=== PATIENT | female | born 1955 | race Caucasian/White ===

== ENCOUNTER → 2016-10-20 | Outpatient (CLI) | payer BC | END | disposition home or self-care (01) | LOC: RAD.S 15:30 | DX: C50.912 Malignant neoplasm of unspecified site of left female breast (principal); F41.9 Anxiety disorder, unspecified; I10 Essential (primary) hypertension; Z92.21 Personal history of antineoplastic chemotherapy ==

== ENCOUNTER → 2016-11-06 | Outpatient (CLI) | payer BC | END | disposition home or self-care (01) | LOC: RAD.S 11-04 09:00 | DX: C50.912 Malignant neoplasm of unspecified site of left female breast (principal); I10 Essential (primary) hypertension; F41.9 Anxiety disorder, unspecified; Z92.21 Personal history of antineoplastic chemotherapy ==